=== PATIENT | male | born 1970 | race African-American/Black ===

== ENCOUNTER 2017-07-29 14:58 | Inpatient (IN) ==
[2017-07-29] MEDS ORDERED: ZOFRAN IV ONE (15:27)
[2017-07-29] MEDS ORDERED: NS 1,000 ML IV ONE (15:28)
[2017-07-29] MEDS ORDERED: MORPHINE IV ONE (15:29)
[2017-07-29 15:36] LABS: MANUAL DIFF NEEDED? NO
[2017-07-29] MEDS ORDERED: NS 1,000 ML ONE (15:37)
[2017-07-29 15:50] LABS: BASO% 0.3 % (0.0-0.8); EOS% 0.8 % (0.0-10.0); HEMATOCRIT 35.3 % (42.0-52.0); HEMOGLOBIN 11.8 g/dL (14.0-18.0); IMM GRAN# 0.31 X1000 (0.0-0.04); IMM GRAN% 2.3 % (0.0-0.5); LYMPH# 1.85 X1000 (1.2-3.4); MCH 29.6 PG (27-31); MCHC 33.4 g/dL (33-37); MCV 88.7 FL (81-99); MONO# 1.18 X1000 (0.11-0.59); MONO% 8.9 % (1.7-9.3); MPV 9.5 FL (7.4-10.4); NEUT% 73.7 % (42.2-75.2); PLT 411 X1000 (130-400); RBC 3.98 XMIL (4.7-6.1)
[2017-07-29 16:02] LABS: AGAP 12; ALBUMIN 3.6 g/dL (3.5-5.0); ALKALINE PHOSPHATASE 68 U/L (32-122); BUN 38 mg/dL (8-22); CALCIUM 8.8 mg/dL (8.8-10.2); CHLORIDE 104 mmol/L (98-107); COSMO 285; GOT 14 U/L (10-34); GPT 11 U/L (10-44); LIPASE 24 U/L (13-60); POTASSIUM 4.8 mmol/L (3.5-5.1); SODIUM 137 mmol/L (136-145); TCO2 21 mmol/L (25-35); TOTAL BILIRUBIN 0.33 mg/dL (0.20-1.00); TOTAL PROTEIN 6.7 g/dL (6.3-8.3)
--- NOTE | 2017-07-29 16:28 | Diag Imaging Result Doc PS360 ---
EXAM: KUB ABDOMEN HISTORY: epigastric pain TECHNIQUE: Portable supine AP COMPARISON: None. FINDINGS: The bowel loops are not dilated. No foreign body. Very little other information is obtained due to the technique and the patient's large body habitus. IMPRESSION: Negative study. Electronically signed by Jaime Nam 07/29/2017 4:25 PM
[2017-07-29 16:42] LABS: INR 1.12; PROTIME 11.8 Seconds (9.2-11.7); PTT 26.4 Seconds (22.0-36.0)
[2017-07-29] MEDS ORDERED: SODIUM CHLORIDE 0.9% INJ ONE (16:46)
[2017-07-29] MEDS ORDERED: PROTONIX IV ONE (16:46)
[2017-07-29] MEDS ORDERED: ATIVAN IV PRN (17:27)
--- NOTE | 2017-07-29 18:22 | Diag Imaging Result Doc PS360 ---
EXAM: CHEST-2 VIEWS HISTORY: sob; leukocytosis TECHNIQUE: Two views COMPARISON: None. FINDINGS: The lungs are well expanded. The heart is not enlarged. The vessels are not distended. There are no infiltrates. No pleural effusions. IMPRESSION: No pneumonia. Electronically signed by Jaime Nam 07/29/2017 6:19 PM
[2017-07-29] MEDS ORDERED: ZOFRAN IV PRN (19:29)
[2017-07-29] MEDS: M.V.I.-12 10 ML, FOLIC ACID 1 MG, MAGNESIUM SULFATE 1 GM, THIAMINE 100 MG in NS 1,000 ML IV SCH (19:35)
[2017-07-29] MEDS: PROTONIX 80 MG in NS 80 ML IV SCH (19:35)
[2017-07-29 20:11] LABS: URINE CULTURE NEEDED? NO; URINE MICRO REVIEW NEEDED? NO; URINE SOURCE CLEAN CATCH
[2017-07-29 20:16] LABS: BILIRUBIN URINE NEGATIVE (NEGATIVE); BLOOD URINE NEGATIVE (NEGATIVE); COLOR STRAW; GLUCOSE URINE NEGATIVE (NEGATIVE); LEUKOCYTES URINE NEGATIVE (NEGATIVE); NITRITE URINE NEGATIVE (NEGATIVE); PH URINE 5.5; PROTEIN URINE NEGATIVE (NEGATIVE); SP GRAVITY URINE 1.021; TURBIDITY URINE CLEAR (CLEAR); UROBILINOGEN URINE NORMAL (NORMAL)
[2017-07-29 20:17] LABS: UR EPITHELIAL CELLS <10 /HPF (<10); URINE BACTERIA NEGATIVE /HPF; URINE RBC <10 /HPF (<10); URINE WBC <10 /HPF (<10)
[2017-07-29 20:31] LABS: UR AMPHETAMINES QUAL NONE DETECTED (NONE DETECT); UR BARBITUATES QUAL NONE DETECTED (NONE DETECT); UR BENZODIAZEPIN QUAL NONE DETECTED (NONE DETECT); UR CANNABINOIDS QUAL NONE DETECTED (NONE DETECT); UR COCAINE QUAL NONE DETECTED (NONE DETECT); UR METHADONE QUAL NONE DETECTED (NONE DETECT); UR OPIATES QUAL NONE DETECTED (NONE DETECT); UR OXYCODONE QUAL NONE DETECTED (NONE DETECT); UR PCP QUAL NONE DETECTED (NONE DETECT)
[2017-07-29] MEDS: NS 1,000 ML IV SCH (21:18)
[2017-07-29] MEDS: HUMULIN R SUBQ SCH (21:19)
[2017-07-29] MEDS: CARAFATE LIQUID PO SCH (21:19)
[2017-07-29 22:02] LABS: HEMATOCRIT 29.6 % (42.0-52.0); HEMOGLOBIN 9.7 g/dL (14.0-18.0)
[2017-07-30 03:16] LABS: HEMATOCRIT 25.2 % (42.0-52.0); HEMOGLOBIN 8.3 g/dL (14.0-18.0)
[2017-07-30] MEDS: CARAFATE LIQUID PO SCH ×4 (03:19→21:01)
[2017-07-30] MEDS: PROTONIX 80 MG in NS 80 ML IV SCH ×2 (03:19→16:19)
[2017-07-30 05:06] LABS: MANUAL DIFF NEEDED? NO
[2017-07-30 05:09] LABS: BASO% 0.4 % (0.0-0.8); EOS# 0.16 X1000 (0.0-0.7); EOS% 1.9 % (0.0-10.0); HEMATOCRIT 26.6 % (42.0-52.0); HEMOGLOBIN 8.7 g/dL (14.0-18.0); IMM GRAN# 0.23 X1000 (0.0-0.04); IMM GRAN% 2.7 % (0.0-0.5); LYMPH# 1.17 X1000 (1.2-3.4); LYMPH% 13.9 % (20.5-51.1); MCH 28.9 PG (27-31); MCHC 32.7 g/dL (33-37); MCV 88.4 FL (81-99); MONO# 0.92 X1000 (0.11-0.59); MONO% 10.9 % (1.7-9.3); MPV 9.1 FL (7.4-10.4); NEUT% 70.2 % (42.2-75.2); PLT 291 X1000 (130-400); RBC 3.01 XMIL (4.7-6.1)
[2017-07-30 05:18] LABS: INR 1.08; PROTIME 11.4 Seconds (9.2-11.7); PTT 27.3 Seconds (22.0-36.0)
[2017-07-30 05:19] LABS: HEMOGLOBIN A1C 5.6 % (4.8-6.0)
[2017-07-30 05:32] LABS: AGAP 9; ALBUMIN 2.9 g/dL (3.5-5.0); ALKALINE PHOSPHATASE 50 U/L (32-122); BUN 34 mg/dL (8-22); CHLORIDE 109 mmol/L (98-107); COSMO 286; GOT 9 U/L (10-34); GPT 8 U/L (10-44); MAGNESIUM 1.9 mg/dL (1.5-2.7); POTASSIUM 4.2 mmol/L (3.5-5.1); SODIUM 139 mmol/L (136-145); TCO2 21 mmol/L (25-35); TOTAL BILIRUBIN 0.26 mg/dL (0.20-1.00); TOTAL PROTEIN 5.6 g/dL (6.3-8.3)
[2017-07-30] MEDS: NS 1,000 ML IV SCH ×2 (05:44→16:20)
[2017-07-30] MEDS: HUMULIN R SUBQ SCH ×4 (06:04→21:01)
--- NOTE | 2017-07-30 06:13 | EKG Report ---
Test Performed on : 07/29/2017 3:17:58 PM Test Reason : re-ordered Blood Pressure : / mmHG Vent. Rate : 101 BPM Atrial Rate : 101 BPM P-R Int : 142 ms QRS Dur : 066 ms QT Int : 302 ms P-R-T Axes : 030 025 012 degrees QTc Int : 391 ms Sinus tachycardia. Otherwise normal ECG When compared with ECG of 09-FEB-2016 12:21, No significant change was found Unconfirmed Result
--- NOTE | 2017-07-30 07:54 | Diag Imaging Result Doc PS360 ---
EXAM: US ABDOMEN-COMPLETE INDICATION: epigastric pain; daily alcohol COMPARISON: None. FINDINGS: The gallbladder appears normal with no stones, wall thickening, or pericholecystic fluid. The common bile duct is normal in diameter. Sonographic Headley's sign was reported to be negative. The liver is grossly unremarkable. Portal venous flow is hepatopedal. The pancreas is obscured by bowel gas. The aorta and IVC are grossly unremarkable. The spleen is unremarkable. The kidneys are grossly unremarkable. IMPRESSION: Essentially unremarkable abdominal ultrasound. Electronically signed by Fabien Toscano 07/30/2017 7:52 AM
[2017-07-30] MEDS: M.V.I.-12 10 ML, FOLIC ACID 1 MG, MAGNESIUM SULFATE 1 GM, THIAMINE 100 MG in NS 1,000 ML IV SCH (08:31)
[2017-07-30 09:26] LABS: HEMATOCRIT 25.5 % (42.0-52.0); HEMOGLOBIN 8.5 g/dL (14.0-18.0)
[2017-07-30] MEDS ORDERED: DIPRIVAN 1% ONE ×2 (12:45→12:53)
[2017-07-30 15:54] LABS: HEMATOCRIT 25.6 % (42.0-52.0); HEMOGLOBIN 8.4 g/dL (14.0-18.0)
[2017-07-30 22:12] LABS: HEMATOCRIT 24.3 % (42.0-52.0); HEMOGLOBIN 8.2 g/dL (14.0-18.0)
[2017-07-31] MEDS ORDERED: PNEUMOVAX 23 IM ONE (00:30)
[2017-07-31] MEDS: CARAFATE LIQUID PO SCH ×4 (02:00→20:42)
[2017-07-31] MEDS: NS 1,000 ML IV SCH ×3 (02:00→23:09)
[2017-07-31] MEDS: PROTONIX 80 MG in NS 80 ML IV SCH ×3 (02:01→23:09)
[2017-07-31 03:22] LABS: HEMATOCRIT 23.6 % (42.0-52.0); HEMOGLOBIN 7.8 g/dL (14.0-18.0)
[2017-07-31 05:02] LABS: MANUAL DIFF NEEDED? NO
[2017-07-31 05:11] LABS: BASO% 0.6 % (0.0-0.8); EOS# 0.17 X1000 (0.0-0.7); EOS% 2.6 % (0.0-10.0); HEMATOCRIT 24.2 % (42.0-52.0); HEMOGLOBIN 7.9 g/dL (14.0-18.0); IMM GRAN# 0.12 X1000 (0.0-0.04); IMM GRAN% 1.8 % (0.0-0.5); LYMPH# 0.94 X1000 (1.2-3.4); LYMPH% 14.5 % (20.5-51.1); MCH 28.8 PG (27-31); MCHC 32.6 g/dL (33-37); MCV 88.3 FL (81-99); MONO# 0.58 X1000 (0.11-0.59); MONO% 8.9 % (1.7-9.3); MPV 9.1 FL (7.4-10.4); NEUT% 71.6 % (42.2-75.2); PLT 268 X1000 (130-400); RBC 2.74 XMIL (4.7-6.1)
[2017-07-31 05:33] LABS: AGAP 9; BUN 13 mg/dL (8-22); CALCIUM 7.7 mg/dL (8.8-10.2); CHLORIDE 105 mmol/L (98-107); COSMO 273; POTASSIUM 4.1 mmol/L (3.5-5.1); SODIUM 136 mmol/L (136-145); TCO2 22 mmol/L (25-35)
[2017-07-31] MEDS: HUMULIN R SUBQ SCH ×4 (06:06→23:08)
[2017-07-31] MEDS: M.V.I.-12 10 ML, FOLIC ACID 1 MG, MAGNESIUM SULFATE 1 GM, THIAMINE 100 MG in NS 1,000 ML IV SCH (08:36)
[2017-07-31] MEDS: SYMBICORT 160/4.5 MICROGM INHALER INH SCH ×2 (09:41→20:13)
[2017-07-31] MEDS: ICAR-C PO SCH ×2 (09:45→20:42)
[2017-08-01] MEDS: CARAFATE LIQUID PO SCH ×3 (02:52→13:15)
[2017-08-01] MEDS: HUMULIN R SUBQ SCH ×2 (06:05→11:26)
[2017-08-01 07:57] VITALS: BP 132/76
[2017-08-01] MEDS: ICAR-C PO SCH (09:30)
[2017-08-01] MEDS: M.V.I.-12 10 ML, FOLIC ACID 1 MG, MAGNESIUM SULFATE 1 GM, THIAMINE 100 MG in NS 1,000 ML IV SCH (09:31)
[2017-08-01] MEDS: PROTONIX 80 MG in NS 80 ML IV SCH (11:23)
[2017-08-01 12:56] LABS: HEMATOCRIT 24.9 % (42.0-52.0); HEMOGLOBIN 8.1 g/dL (14.0-18.0)
[2017-08-01] MEDS ORDERED: PROTONIX IV SCH (18:00)
[2017-08-01] MEDS ORDERED: SYMBICORT 160/4.5 MICROGM INHALER INH SCH (19:30)
== END 2017-08-01 15:11 | disposition home or self-care (01) ==
LOC: ED 14:58 → SUATTDRO 19:10 → 3S 19:10 → 3N 07-31 11:06
PROVIDERS: ATTEND Internal Medicine